=== PATIENT | female | born 1945 | race Caucasian/White ===

== ENCOUNTER 2025-05-13 14:02 | Outpatient (CLI) | payer MEDICARE, SELFPAY | END 2025-05-13 14:03 | disposition home or self-care (01) | PROVIDERS: PCP Internal Medicine; Visit Provider Internal Medicine | DX: R41.89 Other symptoms and signs involving cognitive functions and awareness (principal); Z13.6 Encounter for screening for cardiovascular disorders; Z13.29 Encounter for screening for other suspected endocrine disorder | CPT/HCPCS: 80053; 80061; 82607; 84443 ==